=== PATIENT | male | born 1940 | race Caucasian/White ===

== ENCOUNTER 2022-06-16 12:39 | Observation (INO) ==
[2022-06-16 13:24] LABS: Basophils % 0.1 % (0.0-0.8); Eosinophils # 0.1 10*3/uL (0.0-0.87); Hematocrit 39.5 VOL% (42.0-52.0); Hemoglobin 12.8 GM/DL (14.0-18.0); Immature Granulocytes % 0.6 %; Immature Granulocytes Absolute 0.05 #; Lymphocytes % 12.8 % (21.2-54.2); Mean Corpuscular HGB Conc 32.4 GM/DL (32-36); Mean Corpuscular Volume 96.6 FL (87-102); Mean Platelet Volume 9.5 FL (9.6-12.0); Monocytes # 0.5 10*3/uL (0.11-0.8); Monocytes % 5.9 % (1.7-12.7); Neutrophils % 79.6 % (38.7-73.9); Platelet Count 171 T/CUMM (130-400); Red Blood Count 4.09 MC/CUMM (3.8-5.5); Red Cell Distribution Width 14.1 % (9.3-17.3)
[2022-06-16 13:54] LABS: Albumin 3.2 G/DL (3.4-5.0); Bilirubin,Total 0.6 MG/DL (0.20-1.00); Calcium 8.9 MG/DL (8.5-10.1); Total Protein 6.5 G/DL (6.4-8.2)
[2022-06-16 13:55] LABS: Osmolality,Calculated 292.1 MOS/KG (273-304); Potassium 3.7 MMOL/L (3.5-5.1)
[2022-06-16] MEDS ORDERED: ALBUTEROL 2.5 MG/3 ML NEB RESP TX PRN (14:58)
[2022-06-16] MEDS ORDERED: ONDANSETRON 4 MG/2 ML VIAL IV PRN (14:58)
[2022-06-16] MEDS ORDERED: ACETAMINOPHEN 325 MG TABLET PO PRN (14:58)
[2022-06-16] MEDS ORDERED: ALUMINUM/MAGNES/SIMETH MAX STR 30 ML UDCUP PO PRN (14:58)
[2022-06-16] MEDS ORDERED: BISACODYL 5 MG TABLET PO PRN (14:58)
[2022-06-16] MEDS ORDERED: SIMETHICONE CHEW 125 MG TABLET PO PRN (14:58)
[2022-06-16] MEDS ORDERED: LACTULOSE 20 GM/30 ML UDCUP PO PRN (14:58)
[2022-06-16] MEDS ORDERED: CALCIUM CARBONATE CHEW 500 MG TABLET PO PRN (14:58)
[2022-06-16] MEDS ORDERED: LACTATED RINGERS 1,000 ML IV SCH (15:00)
[2022-06-16 15:49] LABS: Mucus,Urine Moderate /LPF (Occasional); RBC,Urine 1058 /HPF (0-4)
[2022-06-16 15:50] LABS: Bilirubin,Urine Negative (Negative); Blood, Urine Large mg/dL (Negative); Glucose,Urine (UA) Negative (Negative); Ketones,Urine Negative (Negative); Nitrite,Urine Negative (Negative); Protein,Urine >=300 mg/dL (Negative); Urine Appearance Clear (Clear); Urine Color Yellow (Yellow); Urine Specific Gravity 1.025 (1.001-1.035); Urine pH 5.5 (4.5-8.0)
[2022-06-16 15:51] LABS: Urine Urobilinogen 0.2 eU/dL (<2.0)
[2022-06-16] MEDS ORDERED: ENOXAPARIN 40 MG/0.4 ML SYRINGE SUBCUT SCH (21:00)
[2022-06-16] MEDS: predniSONE 5 MG TABLET PO SCH (21:46)
[2022-06-17 05:24] LABS: Eosinophils % 0.6 % (0.00-10.9); Hematocrit 34.7 VOL% (42.0-52.0); Hemoglobin 11.1 GM/DL (14.0-18.0); Immature Granulocytes Absolute 0.05 #; Lymphocytes # 1.1 10*3/uL (1.4-4.0); Mean Corpuscular Volume 97.7 FL (87-102); Monocytes # 0.3 10*3/uL (0.11-0.8); Monocytes % 6.1 % (1.7-12.7); Neutrophils % 70.3 % (38.7-73.9); Platelet Count 149 T/CUMM (130-400); Red Blood Count 3.55 MC/CUMM (3.8-5.5); Red Cell Distribution Width 14.1 % (9.3-17.3); White Blood Count 4.9 T/CUMM (4-12)
[2022-06-17 06:02] LABS: Calcium 8.7 MG/DL (8.5-10.1); Osmolality,Calculated 289.1 MOS/KG (273-304); Potassium 4.3 MMOL/L (3.5-5.1); Risk Ratio 3.85; Thyroid Stimulating Hormone 2.95 uIU/ml (0.358-3.74); VLDL Cholesterol 20.8 MG/DL
[2022-06-17] MEDS ORDERED: cefTRIAXone 1,000 MG in SODIUM CHLORIDE 0.9% 100 ML IV SCH (07:30)
[2022-06-17] MEDS ORDERED: CHOLECALCIFEROL 1,000 UNIT TABLET PO SCH (09:00)
[2022-06-17] MEDS ORDERED: PANTOPRAZOLE 40 MG TABLET PO SCH (09:00)
[2022-06-17] MEDS ORDERED: OMEGA 3 ACID ETHYL ESTERS 1 GM CAPSULE PO SCH (09:00)
[2022-06-17] MEDS: predniSONE 5 MG TABLET PO SCH (09:41)
[2022-06-17 12:11] VITALS: BP 155/72
== END 2022-06-17 13:05 | disposition home or self-care (01) ==
LOC: N.EDINP 12:39 → N.ED 12:39 → N.TELES 17:27
PROVIDERS: ADMIT Internal Medicine; ATTEND Internal Medicine